=== PATIENT | male | born 1965 | race Caucasian/White ===

== ENCOUNTER 2017-01-27 12:57 | Inpatient (IN) | payer OTHER ==
--- NOTE | ~2017-01-27 | CT4 ---
[facility] A Service of [facility] RADIOLOGY TEXT RESULTS PATIENT: WALDEMAR SHEETS LOCATION: A 323-01 : 63 UNIT #: [id number] AGE: [address]: Liseth Squires MD SEX: M ORDER DR: [id number] [place] [id number] MR#: [id number] Acc #: [id number] NAME: WALDEMAR SHEETS : 1965 SEX: M STUDY DATE/TIME: 01/27/2017 13:51 UNIT: SEDOF ROOM: [id number] STUDY DESCRIPTION: CT Abd and Pelv Wo Cont Attending Physician: Liseth Squires M.D. Ordering Physician: Orestes Hamlin M.D. Primary Care Physician: Janessa Phillips M.D. MEDICAL IMAGING REPORT This report is preliminary unless electronic signature is present. EXAM CT abdomen and pelvis without contrast HISTORY Right upper quadrant pain and left-sided abdominal pain x3 days. History kidney stones. COMPARISON CT abdomen and pelvis 11/21/2014. TECHNIQUE Axial images performed through the abdomen and pelvis with multiplanar reconstructions. No contrast. This CT exam was performed with one or more of the following radiation dose reduction techniques: automatic exposure control, adjustment of mA and/or kV according to patient size, and iterative reconstruction. FINDINGS ABDOMEN: Lung bases unremarkable. The liver demonstrates mild hepatomegaly. Gallbladder distended. Spleen appears normal. Pancreas and adrenal glands unremarkable. Right renal cortical lesion is compatible with cyst. The exophytic lesion seen off the lower pole of the left kidney has previously been documented as a cyst by contrasted CT. Visualized GI tract remarkable for sigmoid bowel wall thickening without evidence of sigmoid diverticular changes. This could reflect diverticulitis or possible focal colitis. There does appear to be some mild bowel wall thickening involving the remainder of the colon but is most prominent at the level of the sigmoid colon. No perforation or abscess. Stomach, small bowel unremarkable. PELVIS: Bladder unremarkable. Degenerative changes lower lumbar spine. [facility] A Service of [facility] RADIOLOGY TEXT RESULTS PATIENT: WALDEMAR SHEETS LOCATION: C3A 323-01 : 63 UNIT #: [id number] AGE: [address]: Liseth Squires MD SEX: M ORDER DR: Small fat-containing umbilical hernia. Punctate non-obstructing right renal stone. IMPRESSION 1. CT findings compatible with colitis, primarily involving the sigmoid colon with bowel wall thickening and minimal pericolonic inflammatory change. This appears to be in an area of diverticular change and could represent diverticulitis, though it does not have the more typical perisigmoid inflammatory change. There is also mild diffuse colonic wall thickening of the remainder of the colon. I tend to favor this represents just a normal collapsed colon and I suspect that the colitis is primarily limited to just a segment of the sigmoid, measuring about 9 cm in length. No perforation or abscess. 2. Punctate non-obstructing right renal stone. 3. Hepatomegaly. RECOMMENDATIONS Recommend clinical follow up to resolution and follow-up colonoscopy may be warranted to exclude underlying mass lesion, though I primarily favor this represents an inflammatory process. Dictated by... Jake Ruby M.D. THIS IS AN ELECTRONICALLY VERIFIED REPORT Jake Ruby M.D. at 01/28/2017 1:33 PM NIKKY/audelia TD: 01/27/2017 23:12 JOB #: [id number] MEDICAL IMAGING REPORT Page 1 of 1
--- NOTE | ~2017-01-27 | US67 ---
[facility] A Service of [facility] RADIOLOGY TEXT RESULTS PATIENT: WALDEMAR SHEETS LOCATION: C3A 323-01 : 63 UNIT #: [id number] AGE: [address]: Liseth Squires MD SEX: M ORDER DR: [id number] [facility] [address] [facility]. [place], [place] [address] [id number] I MR#: [id number] Acc #: [id number] NAME: WALDEMAR SHEETS : 1965 SEX: M STUDY DATE/TIME: 01/28/2017 10:00 UNIT: C3A PCU ROOM: 323 STUDY DESCRIPTION: US Gallbladder Attending Physician: Liseth Squires M.D. Ordering Physician: Howard Maier M.D. Primary Care Physician: Janessa Phillips M.D. MEDICAL IMAGING REPORT This report is preliminary unless electronic signature is present EXAM Gallbladder ultrasound INDICATION Upper quadrant pain for 1 week. TECHNIQUE Sotelo-scale and color Doppler sonographic images were obtained through the gallbladder. FINDINGS There is limited visualization of the pancreas. It can be seen on today's CT scan and appeared atrophic but otherwise unremarkable. There is some coarsening of hepatic echotexture and there is diffuse hepatic steatosis. But no focal hepatic lesions are seen. Main portal vein is patent with hepatopetal flow. Liver is enlarged measuring up to 21 cm in length. There is a simple appearing cyst on the right kidney measuring about 2.1 x 2 x 1.9 cm. No solid renal masses are seen and there is no hydronephrosis. Patient's common bile duct is dilated measuring up to 1.1 cm. Gallbladder appears normal and there is no gallbladder wall thickening or pericholecystic fluid. IMPRESSION 1. Hepatomegaly and diffuse hepatic steatosis as well as some coarsening of hepatic echotexture without focal hepatic lesions. 2. Dilatation of the common bile duct measuring up to 1.1 cm of uncertain clinical significance. This was also seen on yesterday's CT scan, but I think probably is increased when compared to exams dating back to February of 2014. Given history of right upper quadrant pain I would suggest correlation with LFTs. 3. Right renal cyst. Of note the patient also has a nonobstructing stone within the right kidney which cannot be seen on these images. This was identified on the patient's CT from yesterday [facility] A Service of [facility] RADIOLOGY TEXT RESULTS PATIENT: WALDEMAR SHEETS LOCATION: [facility] 323-01 : [birth year] UNIT #: [id number] AGE: [address]: Liseth Squires MD SEX: M ORDER DR: Dictated by... Rafia Lacy M.D. THIS IS AN ELECTRONICALLY VERIFIED REPORT Rafia Lacy M.D. at 01/28/2017 4:26 PM AFF/rnr TD: 01/28/2017 16:06 JOB #: [id number] MEDICAL IMAGING REPORT Page 1 of 1 COPY
--- NOTE | ~2017-01-27 | CO ---
Unit #: [id number] #: [id number] Patient: WALDEMAR PARSONS [id number] [address] [address] [id number] I MR#: [id number] NAME: WALDEMAR PARSONS ROOM: 323 Age: 51 Sex: M Admission Date: 01/28/2017 : 1965 Attending Physician: Liseth Squires M.D. Primary Care Physician: Janessa Phillips M.D. Consultation Date: 01/28/2017 CONSULTATION REPORT REASON FOR CONSULTATION Right upper quadrant pain. Thank you very much for asking us to see Mr. Parsons. HISTORY OF PRESENT ILLNESS He is a 51-year-old white male. He was transferred from the emergency room at [facility]. The patient states that a week or so ago, he developed some diarrhea. He also felt as if he might have some blood in his urine. In the last 24 hours, he developed increased right upper quadrant pain. This is worse with coughing, deep breathing. He has had some nausea, but no vomiting. He went to the emergency room at [facility], where a CAT scan was suspicious for possible sigmoid colitis with some wall thickening. He was started on IV fluids and antibiotics. His potassium was low at 2.5 and this is in the process of being corrected. He was admitted by Dr. Squires of [facility]. He presents at this time for further evaluation and treatment of his abdominal pain. He drinks alcohol on a regular basis. He drinks mostly whiskey. He denies any withdrawal symptoms if he stops drinking. ALLERGIES No known medical allergies. HOME MEDICATIONS Lisinopril. PAST MEDICAL HISTORY Hypertension, gout, COPD, kidney stones, hemorrhoidectomy. FAMILY HISTORY Noncontributory. SOCIAL HISTORY The patient smokes on a daily basis. Drinks alcohol regularly. REVIEW OF SYSTEMS Negative except for above. IMMUNIZATION STATUS Unknown. PHYSICAL EXAMINATION Unit #: [id number] #: [id number] Patient: WALDEMAR PARSONS GENERAL: Well-developed white male, in no apparent distress. VITAL SIGNS: Afebrile. Vital signs stable with a temperature of 98.2, pulse 79, respirations 12, blood pressure 153/98. NECK: Supple. No thyromegaly or adenopathy. HEENT: Sclerae nonicteric. Extraocular movements are intact. BACK: No CVA or spinous tenderness. CHEST: Bilateral mild wheezing on expiration. CARDIAC: Regular rate and rhythm without murmur heard. ABDOMEN: Mild distention. Reducible small umbilical hernia. This has no redness or induration. He is very tender in the right upper quadrant with guarding, but no rebound or peritoneal signs. No palpable masses. No tenderness at all on the left side. DIAGNOSTIC STUDIES LABORATORY RESULTS: Reveal the patient to have a PT and PTT is 13.3 and 29.0. His CMP reveals today a glucose of 116, BUN 6, creatinine 0.7, sodium 134, potassium 3.4. His total bilirubin is 1.2 with an AST of 69, ALT of 39, alkaline phosphatase of 131. His amylase and lipase were normal. His white count is 6.4 with hemoglobin of 11.7, hematocrit 34.6, MCV elevated at 101.7, platelet count 94,000. Urinalysis showed negative nitrites, negative leukocyte esterase. IMPRESSION A 51-year-old white male with right upper quadrant abdominal pain and a CT scan that shows possible mild sigmoid colitis. Currently, he does not really have symptomatology of colitis. We will continue antibiotics; however, in the form of Zosyn and we will add Flagyl as well. He is on Protonix as prophylaxis and passive treatment for possible peptic ulcer disease. We will obtain an ultrasound of the gallbladder today and if this is negative, he may need a HIDA scan. If his gallbladder evaluation is negative, he may need a colonoscopy and possibly upper endoscopy for further evaluation. If the stones are present, he may need laparoscopic cholecystectomy. All of this has been fully explained to the patient in detail. He understands completely and requests to proceed with the current treatment plan. Dictated by... Jacob Salazar/madeline TD: 01/28/2017 15:04 JOB #: [id number] CC: [facility] CONSULTATION REPORT Page 1 of 1 X Howard Maier MD CONSULTATION REPORT
--- NOTE | ~2017-01-27 | HP ---
Unit #: [id number] #: [id number] Patient: WALDEMAR SHEETS [id number] [address] [address] [id number] I MR#: [id number] NAME: WALDEMAR SHEETS ROOM: 323 Age: 51 Sex: M Admission Date: 01/27/2017 : 1965 Attending Physician: Liseth Squires M.D. Primary Care Physician: Janessa Phillips M.D. HISTORY AND PHYSICAL CHIEF COMPLAINT Right upper quadrant pain, alcohol withdrawal, electrolyte abnormalities, abdominal pain. HISTORY This 51-year-old male with hypertension, gout, history of alcohol abuse, was transferred from [facility] emergency department for abdominal pain and alcohol withdrawal. Patient states that he developed some diarrhea a week or so ago after taking medicines for gout. Four days ago thought he passed kidney stones as he experienced hematuria and left upper quadrant pain. Yesterday morning developed right upper quadrant pain, worse with coughing, associated with nausea and chills. He went to [facility] emergency department where a CT scan performed was suspicious for sigmoid colon colitis versus diverticulitis. He was treated with IV fluids, morphine, Zosyn and Zofran. His potassium was 2.5 and he was given multiple runs of potassium. On re-examination he began to complain of increasing right upper quadrant tenderness, and his left lower quadrant was no longer tender. He was therefore, sent to this facility for further workup and treatment. In addition to the above mentioned medicines he was given IV hydralazine, magnesium, thiamine, folic acid and bolused with IV fluids. On examination, he is tremulous. He states that he binge drinks during the weekend but generally does not drink during the week. The last drink of alcohol was probably about 36 hours ago. PAST MEDICAL HISTORY 1. Essential hypertension. 2. Gout. 3. Likely COPD. 4. Kidney stone with stent placement. 5. Hemorrhoidectomy. ALLERGIES None. HOME MEDICATIONS Lisinopril 10 mg. Patient states that he took some Lortab at home for his recent abdominal pain. FAMILY HISTORY CAD. SOCIAL HISTORY Unit #: [id number] #: [id number] Patient: WALDEMAR SHEETS The patient lives alone. He smokes 1 1/4 packs per day of tobacco, drinks about 1/5 of liquor over the weekend. Denies illicit drug use except for the above mentioned Lortab. REVIEW OF SYSTEMS Notable for hypertension, gout, tobacco abuse, alcohol abuse, above mentioned surgeries, abdominal pain. All other systems were reviewed and are otherwise negative. PHYSICAL EXAMINATION GENERAL: Tremulous, somewhat uncomfortable appearing 51-year-old male. VITAL SIGNS: His initial blood pressure was 147/113 yesterday, current blood pressure after hydralazine 152/98. Pulse is 79. Patient is afebrile. O2 saturation is 99% on room air. Respirations are 20. HEENT: Eyes - PERRLA. Extraocular muscles are intact. Pharynx is benign. NECK: Supple without adenopathy or thyromegaly. CHEST: Reveals expiratory wheezes. CARDIAC: Normal S1 and S2 without murmur. ABDOMEN: Bowel sounds are present. Patient has an umbilical hernia on exam. His abdomen is somewhat distended. He is tender in the right upper quadrant, although no rebound or guarding. EXTREMITIES: Without clubbing, cyanosis or edema. Pedal pulses are present. NEUROLOGIC: Patient is awake, alert and oriented. His cranial nerves are intact. He is tremulous on exam. DIAGNOSTIC STUDIES LABORATORY STUDIES: Hematocrit is 37.5, normal white count and platelet count with elevated MCV. SMA 12 - sodium 132, potassium 2.5, which has corrected to 3.4, calcium 7.7, magnesium 1, AST 107, ALT 46, alk phos 143, normal lipase. Urinalysis was negative. IMAGING STUDIES: CT scan - colitis sigmoid colon and in the area of diverticular changes though could be diverticulitis. Hepatomegaly noted on exam. ASSESSMENT 1. Right upper quadrant pain. Rule out peptic ulcer disease versus colitis. 2. Possible sigmoid colitis versus diverticulitis on exam, although patient is not particularly tender over the left lower quadrant. He was experiencing some left-sided abdominal symptoms a few days ago. 3. Alcohol abuse with withdrawal. 4. Hypokalemia. 5. Hypomagnesium treated at [facility]. 6. [facility] hypertension. 7. 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 8. COPD with ongoing tobacco abuse. 9. Gout. PLANS 1. IV fluids. 2. Right upper quadrant ultrasound, continued Zosyn, start proton pump inhibitor and ask [facility] to see in the morning. 3. Will monitor electrolytes and continued to correct. 4. SCDs for DVT prophylaxis. 5. Benzos and vitamins. Unit #: [id number] #: [id number] Patient: WALDEMAR SHEETS 6. Duoneb and smoking cessation counseling. Dictated by Liseth Squires M.D. AML/ts TD: 01/28/2017 05:09 JOB #: [id number] CC: Garret Edwards M.D. HISTORY AND PHYSICAL Page 1 of 1 X Liseth Squires MD X HISTORY AND PHYSICAL
[~2017-01-27 12:57] MED LIST: CAPTOPRIL PO; CIPRO PO; FLOMAX0.4 M1 PO; PERCOCET5/325 PO; WELLBUTRIN PO
[2017-01-27 13:51] LABS: BASOPHIL# 0.1 X10e3 (0-0.3); EOSINOPHIL% 0.3 % (0.0-7.0); HEMATOCRIT 37.5 % (38.0-50.0); HEMOGLOBIN 12.7 gm/dL (13.0-16.0); LYMPHOCYTE# 2.1 X10e3 (1.0-3.5); LYMPHOCYTE% 25.7 % (17.0-45.0); MEAN CELL VOLUME 101.7 FL (83-96); MEAN CORPUSCULAR HEMOGLOBIN 34.4 PG (28-34); MEAN CORPUSCULAR HGB CONC 33.8 g/dL (30-36); MEAN PLATELET VOLUME 7.8 FL (6.5-11.5); MONOCYTE# 0.6 X10e3 (0-1.0); MONOCYTE% 7.2 % (3.0-12.0); NEUTROPHIL# 5.3 X10e3 (1.5-7.1); NEUTROPHIL% 65.8 % (40-75); PLATELET COUNT 130 X10e3 (140-420); RED BLOOD COUNT 3.69 X10e (3.90-5.60); RED CELL DISTRIBUTION WIDTH 19.1 % (11.0-15.5); WHITE BLOOD COUNT 8.1 X10e3 (4.0-10.5)
[2017-01-27 13:52] LABS: DIFF IND NO
[2017-01-27 14:18] LABS: URINE SOURCE CLEAN CATCH
[2017-01-27 14:21] LABS: URINE APPEARANCE CLEAR; URINE BILIRUBIN NEG (NEG); URINE BLOOD TRACE-INTACT (NEG); URINE COLOR YELLOW; URINE GLUCOSE NEG (NORM); URINE KETONE NEG (NEG); URINE LEUKOCYTE ESTERASE NEG (NEG); URINE NITRATE NEG (NEG); URINE PH 6.5 (5-8); URINE PROTEIN NEG (NEG); URINE SPECIFIC GRAVITY <=1.005 (1.003-1.035); URINE UROBILINOGEN 0.2 MG/DL (NORM)
[2017-01-27 14:33] LABS: MICRO INDICATED? YES
[2017-01-27 14:41] LABS: CULTURE INDICATED? NO; URINE BACTERIA NEG (NEG); URINE RBC 0-2 /[HPF] (0-2); URINE WBC 0-2 /[HPF] (0-5)
[2017-01-27 14:44] LABS: ALBUMIN SERUM 3.9 g/dL (3.5-5.0); BILIRUBIN, DIRECT 0.3 mg/dL (0.0-0.2); BILIRUBIN,TOTAL 1.3 mg/dL (0.2-2.0); BUN/CREATININE RATIO 8.33; CALCIUM SERUM 7.7 mg/dL (8.4-10.2); CREATININE SERUM 0.6 mg/dL (0.6-1.4); GLOM FILT RATE Estimated 115.6 mL/min (>60); PROTEIN TOTAL SERUM 6.2 g/dL (6.0-8.3)
[2017-01-27 15:02] LABS: POTASSIUM 2.5 mmol/L (3.5-5.1)
[2017-01-27] MEDS ORDERED: LISINOPRIL10 MG PO (23:16)
[2017-01-28 03:09] LABS: HEMATOCRIT 34.6 % (38.0-50.0); HEMOGLOBIN 11.7 gm/dL (13.0-16.0); MEAN CELL VOLUME 101.7 FL (83-96); MEAN CORPUSCULAR HEMOGLOBIN 34.5 PG (28-34); MEAN CORPUSCULAR HGB CONC 33.9 g/dL (30-36); MEAN PLATELET VOLUME 7.4 FL (6.5-11.5); RED BLOOD COUNT 3.4 X10e (3.90-5.60); RED CELL DISTRIBUTION WIDTH 18.7 % (11.0-15.5); WHITE BLOOD COUNT 6.4 X10e3 (4.0-10.5)
[2017-01-28 03:22] LABS: INR 1.2; PROTHROMBIN TIME (PATIENT) 13.3 SECONDS (10.0-11.7)
[2017-01-28 03:41] LABS: ALBUMIN SERUM 3.5 g/dL (3.5-5.0); BILIRUBIN,TOTAL 1.2 mg/dL (0.2-2.0); BUN/CREATININE RATIO 8.57; CALCIUM SERUM 7.2 mg/dL (8.4-10.2); CREATININE SERUM 0.7 mg/dL (0.6-1.4); GLOM FILT RATE Estimated 108.5 mL/min (>60); MAGNESIUM 1.5 mg/dL (1.6-3.0); POTASSIUM 3.4 mmol/L (3.5-5.1); PROTEIN TOTAL SERUM 6.2 g/dL (6.0-8.3)
[2017-01-28] MEDS ORDERED: AUGMENTIN PO (15:23)
== END 2017-01-28 17:41 | disposition home or self-care (01) | DRG 392 ==
LOC: SED 12:57 → SEDOF 22:55 → SED 22:55 → SEDOF 01-28 → C3A PCU 01-28 01:19
PROVIDERS: Emergency Medicine; Internal Medicine
DX: K52.9 Noninfective gastroenteritis and colitis, unspecified (principal); K70.9 Alcoholic liver disease, unspecified; I10 Essential (primary) hypertension; F10.239 Alcohol dependence with withdrawal, unspecified; M10.9 Gout, unspecified; J44.9 Chronic obstructive pulmonary disease, unspecified; Z87.442 Personal history of urinary calculi; E87.6 Hypokalemia
CPT/HCPCS: 36415; 74176; 76705; 80048; 80053; 80076; 81003; 82150; 83690; 83735; 84132; 85025; 85027; 85610; 85730; 94760; 96374; 96375; 99285; C9113; J0360; J2060; J2270; J2405; J2543; J3411; J3475